=== PATIENT | male | born 1980 | race Caucasian/White ===

== ENCOUNTER 2020-10-03 14:09 | Emergency (ER) | payer MEDICAID ==
[~2020-10-03] VITALS: Ht 165.1 cm; Wt 78.0 kg
[2020-10-03 14:19] VITALS: BP 133/63
--- NOTE | 2020-10-03 14:36 | NUR ---
40 y/o male c/o left chest pain radiating to left arm with +N/V X 3 days. Pt states he has had increased levels of stress in the last week. Denies PMH Denies RX NKA
--- NOTE | 2020-10-03 14:47 | NUR ---
natural resources technician at pt bedside.
--- NOTE | 2020-10-03 14:53 | NUR ---
bicycle repair technician at pt bedside.
[2020-10-03 15:00] LABS: BASOPHILS % (AUTO) 0.6 % (0.0-2.0); EOSINOPHILS % (AUTO) 0.1 % (0.0-4.0); HEMATOCRIT 46.2 % (36-52); HEMOGLOBIN 15.7 g/dL (12.0-18.0); LYMPHOCYTES # (AUTO) 1.4 K/uL (2.0-11.5); LYMPHOCYTES % (AUTO) 21.8 % (20.5-51.1); MEAN CORPUSCULAR HEMOGLOBIN 31 pg (27-31); MEAN CORPUSCULAR HGB CONC 34 g/dL (33-37); MONOCYTES # (AUTO) 0.6 K/uL (0.8-1.0); MONOCYTES % (AUTO) 9.4 % (1.7-9.3); NEUTROPHILS # (AUTO) 4.4 K/uL (1.8-7.7); NEUTROPHILS % (AUTO) 68.1 % (42.2-75.2); PLATELET COUNT (AUTO) 250 K/uL (140-450); RED BLOOD CELL COUNT(AUTO) 5.13 MIL/uL (4.20-6.10); RED CELL DISTRIBUTION WIDTH 13.8 % (11.6-13.7); WHITE BLOOD COUNT (AUTO) 6.5 K/uL (4.8-10.8)
[2020-10-03 15:15] LABS: ALBUMIN 4.2 g/dL (3.4-5.0); ANION GAP 12.9 (8-16); CARBON DIOXIDE 27.8 mmol/L (21-32); CREATININE 0.9 mg/dL (0.6-1.3); POTASSIUM 3.7 mmol/L (3.5-5.1); TOTAL BILIRUBIN 0.8 mg/dL (0.0-1.0)
--- NOTE | 2020-10-03 16:43 | NUR ---
Pt resting, HOB elevated. VSS will continue to monitor.
--- NOTE | 2020-10-03 17:43 | NUR ---
angio technologist at pt bedside.
[2020-10-03 19:00] VITALS: BP 126/72
--- NOTE | 2020-10-03 19:01 | NUR ---
Patient discharged with v/s stable. Written and verbal after care instructions given and explained. Patient alert, oriented and verbalized understanding of instructions. Ambulatory with steady gait. All questions addressed prior to discharge. ID band removed. Patient advised to follow up with PMD. Rx of vistaril 25mg BID PO PRN given. Patient educated on indication of medication including possible reaction and side effects. Opportunity to ask questions provided and answered.
== END 2020-10-03 19:01 | disposition home or self-care (01) ==
LOC: MED 14:09
DX: R07.9 Chest pain, unspecified (principal)
CPT/HCPCS: 36415; 71045; 80053; 81002; 84484; 85025; 93005; 99285

== ENCOUNTER 2021-03-18 14:47 | Emergency (ER) | payer MEDICAID ==
[~2021-03-18] VITALS: Ht 167.6 cm; Wt 77.7 kg
[2021-03-18 14:55] VITALS: BP 120/73
--- NOTE | 2021-03-18 15:13 | NUR ---
FRANK Ovalle with pt for further evaluation.
--- NOTE | 2021-03-18 15:53 | NUR ---
Pt taken to ER bed 11.
--- NOTE | 2021-03-18 15:59 | NUR ---
41 Y/O MALE C/O LEFT KNEE PAIN 03/13 DESCRIBES ACHING NON-RADIATING AND STATES HE "NOTICES A LUMP" TO KNEE X1DAY AFTER THEODORA VACINE INJECTION X1DAY. PT DENIES FEVER/CHILLS, DENIES N/V, DENIES TRAUMA OR INJURY TO AREA. ON ASSESSMENT NO EDEMA NOTED. DENIES PMH NKA
--- NOTE | 2021-03-18 16:14 | NUR ---
java [email or web address] technical lead at pt bedside.
[2021-03-18] MEDS ORDERED: IBUP-1842 PO (16:35)
[2021-03-18 16:45] VITALS: BP 120/73
--- NOTE | 2021-03-18 16:46 | NUR ---
Patient discharged with v/s stable. Written and verbal after care instructions given FOR KNEE PAIN and explained. Patient alert, oriented and verbalized understanding of instructions. Ambulatory with steady gait. All questions addressed prior to discharge. ID band removed. Patient advised to follow up with PMD. Rx of MOTRIN 400MG PO QID PRN PAIN AND OR INFLAMMATION given. Patient educated on indication of medication including possible reaction and side effects. Opportunity to ask questions provided and answered.
== END 2021-03-18 16:44 | disposition home or self-care (01) ==
LOC: MED 14:47
DX: M25.562 Pain in left knee (principal); Z79.899 Other long term (current) drug therapy
CPT/HCPCS: 73562; 99283